=== PATIENT | female | born 1940 | race Caucasian/White ===

== ENCOUNTER 2019-11-04 22:03 | Inpatient (IN) | payer MEDICARE, OTHER ==
[2019-11-04] MEDS ORDERED: Acetaminophen 500 MG TAB ONE (22:42)
[2019-11-04] MEDS ORDERED: Diazepam 5 MG TAB ONE (22:42)
--- NOTE | 2019-11-04 23:00 | PDOC.HHP ---
Hospitalist HPI - History of Present Illness Chest pain History of Present Illness: PCP: Dr. King The patient is a pleasant 79-year-old female past medical history significant for hypertension, hyperlipidemia and Takotsubo syndrome. The patient presented to an outside hospital for 2 to 3 days of "heart burn". Today it grew worse and she had epigastric that led to her vomiting 4 times today and then her chest pain began. She describes the chest pain as an achy feeling that went into her left shoulder. She states that she did have relief when she received nitro. She denies shortness of breath, exacerbating symptoms, relieving factors at home, change in bladder patterns, contact with sick persons. She states she has been compliant with her medication. The only other time she has had chest pain was 10 years ago when she was diagnosed with Takotsubo syndrome. ED Course: VITAL SIGNS [facility] Nov 04, 2019 22:04 SINCERE Mohamud Kristin BP: 180/69, MAP: 106, Pulse: 63, Resp: 18, Temp: 98.4 (Oral), Pain: 5, O2 sat: 95 on (Room Air), Time: 11/04/2019 22:04. VITAL SIGNS [facility] Nov 04, 2019 22:36 SINCERE Mohamud Kristin BP: 138/78, MAP: 98, Pulse: 63, Resp: 16, O2 sat: 96 on (Room Air), Time: 11/04/2019 22:36. VITAL SIGNS [facility] Nov 04, 2019 23:30 SINCERE Mohamud Kristin BP: 117/62, MAP: 80, Pulse: 60, Resp: 16, Pain: 0, O2 sat: 96 on (Room Air), Time: 11/04/2019 23:30. VITAL SIGNS [place] Nov 05, 2019 00:27 SINCERE Mohamud Kristin BP: 141/67, Pulse: 59, Resp: 16, Temp: 98, Pain: 0, O2 sat: 95, Time: 11/05/2019 00:27. Patient was originally seen in the [place] ER, where she had an EKG completed chest x-ray and had medication administered. She received Zofran 4 mg sublingual, four 81 mg aspirin, nitro 0.4 mg sublingual, GI cocktail, Protonix 40 mg IV push, and Lopressor 5 mg IV push. She was then transferred to the [place] ER after her troponin was indeterminate at 0.195 and she remained hypertensive. Today in the [place] ER she had lab work, EKG, CT of the brain, and medication administered. She had diazepam 5 mg orally, Tylenol 1000 milligrams orally, and full dose Lovenox administered. Hospitalist ROS - Review of Systems Cardiovascular: reports: chest pain Gastrointestinal: reports: vomiting, other (Heartburn) All other systems reviewed; all pertinent +/- noted in HPI/Subj - Medication Medications: No known drug allergies Current medications: Lexapro Sat Nov 04, 2019 22:23 SINCERE Shah Victoria TABLET : Strength - 20 mg : ORAL Patient Dose: 10 mg Oral once a day. simvastatin [facility] Nov 04, 2019 22:23 SINCERE Shah Victoria TABLET : Strength - 20 mg : ORAL Patient Dose: 20 mg Oral once a day. metoprolol tartrate oral [facility] Nov 04, 2019 22:28 SINCERE Shah Victoria TABLET : Strength - 100 mg : ORAL Patient Dose: 1 tab(s) Oral 2 times a day. lisinopril [facility] Nov 04, 2019 22:29 SINCERE Shah Victoria TABLET : Strength - 5 mg : ORAL Patient Dose: unk mg Oral once a day Hospitalist History - Past Medical History Source: patient Cardiac: reports: HTN, Hyperlipidemia, Other (Takotsubo syndrome) Psych: reports: Anxiety - Past Surgical History Past Surgical History: reports: Hernia Repair - Family History Family History: reports: no pertinent history - Social History Smoking Status: Never smoker Alcohol: reports: None Drugs: reports: none Living Situation: With Family Activity level: independent ambulation - Exam General Appearance: NAD, awake alert Eye: PERRL Neck: supple, no lymphadenopathy Heart: RRR, no murmur, no gallops, no rubs, normal peripheral pulses Respiratory: CTAB, no wheezes, no rales, no ronchi, normal chest expansion Gastrointestinal: soft, non-tender, non-distended, normal bowel sounds Extremities: no edema Psychiatric: normal affect, normal behavior Hospitalist Results - Labs Lab results: Laboratory Tests 11/04/19 11/04/19 11/04/19 19:38 19:38 19:38 WBC 7.8 RBC 4.10 L Sodium 140 Potassium 4.0 Chloride 101 BUN 19 Creatinine 0.90 Estimated GFR (MDRD) 60 Glucose 123 H Lactic Acid 1.4 CK-MB (CK-2) Troponin I 11/04/19 11/04/19 19:38 22:47 WBC RBC Sodium Potassium Chloride BUN Creatinine Estimated GFR (MDRD) Glucose Lactic Acid CK-MB (CK-2) 2.7 6.2 Troponin I 0.195 H 1.155 H* - EKG Interpretation EKG: Initial ER at [place] showed normal sinus rhythm 66 bpm with no ectopic beats with complete right bundle branch block EKG in [place] showed normal sinus rhythm 61 bpm with no ectopic beats with a right bundle branch block - Radiology Interpretation CT scan - head Status: report reviewed by me Additional Comment: Impression: 1. No acute intracranial findings 2. Involutional changes and chronic ischemic white matter changes Hospitalist H&P A/P - Problem (1) NSTEMI (non-ST elevated myocardial infarction) Code(s): I21.4 - NON-ST ELEVATION (NSTEMI) MYOCARDIAL INFARCTION Status: Acute (2) Hypertension Code(s): I10 - ESSENTIAL (PRIMARY) HYPERTENSION Status: Chronic (3) Hyperlipidemia Code(s): E78.5 - HYPERLIPIDEMIA, UNSPECIFIED Status: Chronic (4) Vomiting Code(s): R11.10 - VOMITING, UNSPECIFIED Status: Acute - Plan Plan: NSTEMI Currently no active chest pain or shortness of breath Continue to trend troponins Monitor on telemetry Cardiology consult in a.m., n.p.o. until collar setter clears patient Scheduled nitro Full dose Lovenox twice daily Echo in a.m. Hypertension Vital signs every 4 hour, currently hemodynamically stable Can restart home medications Nausea and vomiting Currently resolved PRN antiemetics available Hyperlipidemia Can restart home medications VTE prophylaxis covered with full dose Lovenox and GI prophylaxis covered with Protonix CODE STATUS: DNR Surrogate decision maker is her , Curtis Patient discussed with Dr. Lopez
--- NOTE | 2019-11-04 23:27 | CT ---
CT BRAIN NONCONTRAST: DATE: 11/04/2019 HISTORY: 79-year-old female with headache FINDINGS: There is no evidence of acute intra-axial or extra-axial hemorrhage. There is no midline shift or any other mass effect. There is no extra-axial fluid collection. There is no evidence of obstructive hydrocephalus. Calvarium is intact. There is diffuse brain parenchymal volume loss. There are low att enuation areas in the white matter. These are nonspecific, but in a patient of this age, they are probably chronic ischemic white matter changes due to microvascular atherosclerosis. IMPRESSION: 1) No acute intracranial findings. 2) involutional changes and chronic ischemic white matter changes.
[2019-11-04 23:41] LABS: CKMB 6.2 ng/mL (0-6.6)
[2019-11-05] MEDS ORDERED: Enoxaparin Sodium 60 MG/0.6 ML SYRINGE ONE (00:27)
[2019-11-05 01:17] VITALS: BMI 21.2
[2019-11-05] MEDS ORDERED: Nitroglycerin 2% Ointment 1 INCH/1 GM Packet TOP SCH (02:30)
[2019-11-05] MEDS: Acetaminophen 325 MG TAB PO PRN ×3 (02:44→16:31)
[2019-11-05 02:53] LABS: Troponin I 1.722 ng/mL (< 0.028)
[2019-11-05 05:10] LABS: Cardiac Risk 2.1 (Less than 4.5)
[2019-11-05 05:17] LABS: Critical Call Chem Troponin I RESULT DECREASING; Troponin I 1.551 ng/mL (< 0.028)
[2019-11-05] MEDS ORDERED: Carvedilol 3.125 MG TAB PO SCH (07:30)
[2019-11-05] MEDS: Enoxaparin Sodium 60 MG/0.6 ML SYRINGE SC SCH ×4 (09:23→21:38)
[2019-11-05] MEDS: Aspirin 325 mg Enteric Coated Tablet PO SCH (09:27)
[2019-11-05] MEDS ORDERED: Communication Order-Pharmacy FS SCH (11:00)
[2019-11-05 12:24] LABS: SARS-CoV-2 MS2 Positive; SARS-CoV-2 N Gene Negative; SARS-CoV-2 S Gene Negative; SARS-CoV-2 by NAA Not Detected (NotDetected); SARS-CoV-2 orf1ab Negative
--- NOTE | 2019-11-05 12:25 | CON ---
DATE OF CONSULTATION: HISTORY OF PRESENT ILLNESS: The patient is a 79-year-old woman, who presents for evaluation of nausea, vomiting, and chest discomfort. The patient has a previous history of takotsubo's syndrome. She made a complete recovery from her cardiomyopathy. The patient was in her usual state of health when she started being nauseated and vomiting. She also felt dyspneic. The patient reported having midsternal chest discomfort. She came to the hospital yesterday with persistent discomfort. The patient denies having any present chest pain. The patient's cardiac risk factors include hypertension, dyslipidemia, and a family history of coronary artery disease. PAST MEDICAL HISTORY: 1. Hypertension. 2. Dyslipidemia. PAST SURGICAL HISTORY: Hernia surgery. SOCIAL HISTORY: Nonsmoker. MEDICATIONS: 1. Zocor 30 at bedtime. 2. Toprol 50 b.i.d. 3. Lisinopril 10 daily. 4. Lexapro 10 daily. ALLERGIES: NO KNOWN DRUG ALLERGIES. REVIEW OF SYSTEMS: Ten-point system otherwise unremarkable. No history of easy bruising or bright red blood per rectum. PHYSICAL EXAMINATION: GENERAL: This is a thin woman, in no acute distress. VITAL SIGNS: Blood pressure 141/67. NECK: Showed no jugular venous distention. LUNGS: Clear to auscultation. HEART: Regular rate and rhythm. Normal S1 and S2. No murmurs. ABDOMEN: Nondistended. EXTREMITIES: Show no edema. VASCULAR: Radial pulses 2+. LABORATORY DATA: Sodium was 140, potassium 4.0, chloride 101, bicarbonate 26, BUN 19, and creatinine 0.9. Troponin 1.5. White blood cell count 7.8, hemoglobin 12.6, hematocrit 40.9, and platelets are 238. EKG normal sinus rhythm with left axis deviation and right bundle-branch block. IMPRESSION: 1. Non-Q-wave myocardial infarction. 2. History of takotsubo syndrome. 3. Hypertension. 4. Dyslipidemia. This patient presents with a small non-Q-wave myocardial infarction. I discussed the option of medical therapy versus invasive evaluation. The patient first proceed with a cardiac catheterization. The risks involved in the procedure including LA, bleeding, stroke, cardiac arrhythmia, cardiac explained to the patient. The patient understands these risks and wished to proceed. Job ID: [id number] [facility]
--- NOTE | 2019-11-05 12:29 | PDOC.HOSPP ---
- Subjective Encounter Date: 11/05/19 Encounter Time: 11:00 Subjective: The patient has no chest pain currently. She had chest pressure earlier this morning and nausea for two days. Her nausea has improved. No palpitations, dizziness or lightheadedness She denies SOB - Objective Vital Signs & Weight: Vital Signs (12 hours) Temp Pulse Resp BP Pulse Ox 11/05/19 09:24 97.8 F 58 L 14 141/67 H 97 11/05/19 04:39 98.3 F 61 16 133/63 97 11/05/19 01:00 96 11/05/19 00:58 98.6 F 62 20 171/76 H 99 Weight Weight 120 lb 1.6 oz Hospitalist ROS - Review of Systems Constitutional: denies: fever, chills - Medication Medications: Active Medications Generic Name Dose Route Start Last Admin Trade Name Freq PRN Reason Stop Dose Admin Acetaminophen 650 mg 11/05/19 02:22 11/05/19 09:27 Acetaminophen 325 Mg Tab PO 650 mg Q6H PRN Administration Pain Aspirin 325 mg 11/05/19 09:00 11/05/19 09:27 Aspirin 325 Mg Enteric Coated Tablet PO 325 mg DAILY JANELLE Administration Enoxaparin Sodium 50 mg 11/05/19 09:00 11/05/19 10:57 Enoxaparin Sodium 60 Mg/0.6 Ml Syringe SC 11/05/19 22:00 50 mg 0900,2100 JANELLE Administration Pantoprazole Sodium 40 mg 11/05/19 09:00 11/05/19 09:26 Pantoprazole 40 Mg Tab PO 40 mg DAILY JANELLE Administration - Exam General Appearance: NAD, awake alert Eye: PERRL, anicteric sclera ENT: normocephalic atraumatic, no oropharyngeal lesions Neck: no JVD Heart: RRR, no murmur, no gallops, no rubs Respiratory: CTAB, no wheezes, no rales, no ronchi Gastrointestinal: soft, non-tender, non-distended, normal bowel sounds Extremities: no cyanosis, no clubbing, no edema Skin: normal turgor, no lesions, no rashes Neurological: cranial nerve grossly intact, normal sensation to touch, no focal deficits, no new deficit Musculoskeletal: normal tone, normal strength, no muscle wasting Hosp A/P - Plan This is a 79 year old female with past medical history of depression, hypertenesion, hyperlipidemia who presented with chest pain/nausea, admitted for NSTEMI NSTEMI - troponin peaked at 1.722 - continue aspirin, statin, nitro and lovenox. - cardiology has been consulted, plan for cardiac cath tomorrow Hypertension - continue beta-carolyn if not bradycardic Hyperlipidemia - continue statin Depression - continue celexa
[2019-11-05] MEDS: Nitroglycerin 2% Ointment 1 INCH/1 GM Packet TOP SCH ×2 (15:08→21:37)
[2019-11-06 04:03] LABS: Hemoglobin 11.4 g/dL (12.0-16.0); Platelet Count 216 thou/uL (130-400)
[2019-11-06] MEDS: Nitroglycerin 2% Ointment 1 INCH/1 GM Packet TOP SCH ×2 (05:17→13:30)
[2019-11-06] MEDS: Aspirin 325 mg Enteric Coated Tablet PO SCH (05:17)
[2019-11-06] MEDS: Acetaminophen 325 MG TAB PO PRN (07:48)
[2019-11-06] MEDS ORDERED: Iopamidol 370 76% 100 ML VIAL ONE (09:31)
[2019-11-06] MEDS ORDERED: Lidocaine 1% (PF) 30 ML VIAL ONE (10:26)
[2019-11-06] MEDS ORDERED: Sodium Chloride 0.9% 200 ML IV PRN (11:19)
[2019-11-06] MEDS ORDERED: Acetaminophen/Codeine 30-300mg Tablet PO PRN ×2 (11:19)
[2019-11-06] MEDS ORDERED: Nitroglycerin 0.4 MG TAB (25 Tab Bottle) SL PRN (11:19)
[2019-11-06 16:44] VITALS: BP 146/70; TEMP 97.7
[2019-11-06] MEDS ORDERED: Atorvastatin Calcium 40 MG TAB PO SCH (21:00)
--- NOTE | 2019-11-07 00:46 | DIS ---
DATE OF ADMISSION: 11/05/2019 DATE OF DISCHARGE: 11/06/2019 DISCHARGE DIAGNOSIS: Non-ST segment elevation myocardial infarction. CONSULTATIONS: Franklin Alanis MD, with Cardiology. PROCEDURES: Cardiac cath, 11/06/2019. BRIEF HISTORY OF PRESENT ILLNESS: This is a 79-year-old female with a past medical history of hypertension, hyperlipidemia, Takotsubo, presented to the emergency room with 2-3 days of heartburn. She reported that she had epigastric pain, followed by vomiting and then chest pain. Her chest pain radiated to her left shoulder. Due to persistent vomiting, she came to the emergency room. EKG showed no Q-waves. It showed a normal sinus rhythm with left axis deviation, right bundle branch block. Troponin was elevated at 1.155. The patient was given therapeutic Lovenox, aspirin, statin, admitted for further workup. HOSPITAL COURSE: Acute NSTEMI: The patient underwent cardiac cath on 11/05. She was found to have a 30% stenosis of her mid RCA. Her LAD, left circumflex, and LMCA were normal. She was advised to start aspirin 81 mg p.o. daily. Her Zocor was switched to atorvastatin [address] Alanis's recommendation. She was discharged with nitroglycerin. She will resume her lisinopril. She should follow up with Dr. Alanis in 1 month. The patient had no chest pain at the time of discharge. DISCHARGE PHYSICAL EXAMINATION: VITAL SIGNS: Temperature 97.7, heart rate 71, respiratory rate 17, O2 saturation 98% on room air, blood pressure 146/70. GENERAL: The patient is alert, oriented x3. CVS: Regular rate and rhythm with no murmurs, rubs, or gallops. LUNGS: Clear to auscultation bilaterally. ABDOMEN: Positive bowel sounds, soft, nontender, nondistended. EXTREMITIES: No edema. PERTINENT LABORATORY DATA: CBC, 11/03: White count 7.8, hemoglobin 11.4, hematocrit 34.0, and platelet count 216. BMP, 11/03: Normal. Serum creatinine, 11/05: 0.97. LFTs, 11/03: Normal. Troponin I: 0.195, which peaked at 1.722 and decreased to 1.551. CK-MB: peaked at 6.2. Lipid panel: Cholesterol 154, LDL 74, HDL 72. UA 11/03: Showed turbid urine, 0-3 white blood cells. COVID PCR, 11/04: Negative. IMAGING: CT brain, 11/03: No acute findings. DISCHARGE INSTRUCTIONS: The patient needs to take aspirin. She should stop her Zocor and switch to atorvastatin. She needs to follow up with Dr. Alanis in a month. Consider repeat CBC to evaluate resolution of anemia. DISCHARGE MEDICATIONS: 1. Aspirin 81 mg p.o. daily. 2. Atorvastatin 20 mg p.o. at bedtime. 3. Nitroglycerin 0.4 mg SL q.5 hours minutes p.r.n. 4. Lisinopril 10 mg p.o. daily. 5. Metoprolol succinate 50 mg p.o. b.i.d. 6. Celexa 10 mg p.o. daily. Job ID: [id number] [facility]
== END 2019-11-06 17:59 | disposition home or self-care (01) | DRG 282 ==
LOC: ERS 22:03 → 2NO 11-05
PROVIDERS: ADMIT Family Medicine; ATTEND Family Medicine
PROC: 4A023N7 Measurement of Cardiac Sampling and Pressure, Left Heart, Percutaneous Approach (ICD-10-PCS; principal; 2019-11-06)
PROC: B2151ZZ Fluoroscopy of Left Heart using Low Osmolar Contrast (ICD-10-PCS; 2019-11-06)
PROC: B2111ZZ Fluoroscopy of Multiple Coronary Arteries using Low Osmolar Contrast (ICD-10-PCS; 2019-11-06)
DX: I21.4 Non-ST elevation (NSTEMI) myocardial infarction (principal); Z66 Do not resuscitate; Z20.828 Contact with and (suspected) exposure to other viral communicable diseases; I10 Essential (primary) hypertension; E78.5 Hyperlipidemia, unspecified; F41.9 Anxiety disorder, unspecified; I25.10 Atherosclerotic heart disease of native coronary artery without angina pectoris; F32.9 Major depressive disorder, single episode, unspecified; I45.10 Unspecified right bundle-branch block; D64.9 Anemia, unspecified; Z79.899 Other long term (current) drug therapy
CPT/HCPCS: 36415; 70450; 80061; 82553; 82565; 84484; 85014; 85018; 85049; 87635; 93005; 93306; 93458; 94760; 96372; J1644; J1650; J2001; Q9967; U0003

== ENCOUNTER 2020-11-14 19:36 | Inpatient (IN) | payer MEDICARE ==
[2020-11-14 23:53] VITALS: BMI 20.1
[2020-11-15] MEDS ORDERED: Ondansetron PF 4 MG/2 ML Vial IVP PRN (01:41)
[2020-11-15] MEDS ORDERED: Acetaminophen 325 MG TAB PO PRN (01:41)
[2020-11-15] MEDS ORDERED: hydrALAZINE 20 MG/ML VIAL SLOW IVP PRN (01:43)
[2020-11-15 02:44] LABS: Hemoglobin 11.5 g/dL (12.0-16.0); Mean Corpuscular Hemoglobin 31.4 pg (27.0-31.0); Mean Corpuscular Volume 95.3 fL (78.0-98.0); Mean Platelet Volume 8.1 fL (7.4-10.4); Platelet Count 221 thou/uL (130-400); RBC Distribution Width 10.9 % (11.5-14.5); Red Blood Cell (RBC) Count 3.66 mill/uL (4.20-5.40); White Blood Cell (WBC) Count 6.1 thou/uL (4.8-10.8)
[2020-11-15 03:09] LABS: Anion Gap 13 mmol/L (10-20); BUN (Urea Nitrogen) 19 mg/dL (9.8-20.1); Calc. Creatinine Clearance 43 mL/min (70-130); Calcium 9.5 mg/dL (7.8-10.44); Carbon Dioxide 24 mmol/L (23-31); Chloride 105 mmol/L (98-107); Glucose 120 mg/dL (83-110); Magnesium 1.9 mg/dL (1.6-2.6); Potassium 3.7 mmol/L (3.5-5.1); Sodium 138 mmol/L (136-145)
[2020-11-15 03:35] LABS: Eosinophils 3 % (0-10); Lymphocytes 57 % (21-51); MDiff Complete? YES; Monocytes 3 % (0-10); Neutrophil 35 % (42-75)
[2020-11-15] MEDS: Aspirin 81 mg Enteric Coated Tablet PO SCH (08:49)
[2020-11-15] MEDS ORDERED: Lisinopril 10 MG TAB PO SCH (09:00)
[2020-11-15 12:59] LABS: Bacteria/HPF None Seen HPF (None Seen); Bilirubin Negative (Negative); Blood, Urine Negative (Negative); Clarity Clear (Clear); Glucose, Urine (Dipstick) Normal (Negative); Ketone, Urine 20 mg/dL (Negative); Leukocyte Negative Leu/uL (Negative); Nitrite Negative (Negative); Protein, Urine (Dipstick) Negative (Neg-Trace); RBC/HPF 0-3 HPF (0-3); Specific Gravity, Urine 1.012 (1.002-1.036); Squamous Epithelial None Seen HPF (0-3); Urobilinogen Normal mg/dL (Less than 2); WBC/HPF 0-3 HPF (0-3); pH, Urine 6.5 (5.0-9.0)
[2020-11-15 13:04] LABS: Urine Culture Reflex No No
[2020-11-15] MEDS ORDERED: Atorvastatin Calcium 20 MG TAB PO SCH (21:00)
[2020-11-15] MEDS: Lisinopril 10 MG TAB PO SCH (21:05)
[2020-11-16 05:32] LABS: Hemoglobin 11.8 g/dL (12.0-16.0); Mean Corpuscular HGB CONC 33.4 g/dL (32.0-36.0); Mean Corpuscular Hemoglobin 32.1 pg (27.0-31.0); Mean Corpuscular Volume 96.1 fL (78.0-98.0); Mean Platelet Volume 8.2 fL (7.4-10.4); Platelet Count 222 thou/uL (130-400); RBC Distribution Width 11.2 % (11.5-14.5); Red Blood Cell (RBC) Count 3.67 mill/uL (4.20-5.40); White Blood Cell (WBC) Count 5.6 thou/uL (4.8-10.8)
[2020-11-16 05:46] LABS: Anion Gap 11 mmol/L (10-20); BUN (Urea Nitrogen) 20 mg/dL (9.8-20.1); Calc. Creatinine Clearance 44 mL/min (70-130); Calcium 9.5 mg/dL (7.8-10.44); Carbon Dioxide 25 mmol/L (23-31); Chloride 107 mmol/L (98-107); Glucose 106 mg/dL (83-110); Magnesium 2.1 mg/dL (1.6-2.6); Potassium 4.2 mmol/L (3.5-5.1); Sodium 139 mmol/L (136-145)
[2020-11-16 08:39] LABS: Band 3 % (5-11); Eosinophils 1 % (0-10); Lymphocytes 56 % (21-51); MDiff Complete? YES; Monocytes 2 % (0-10); Neutrophil 38 % (42-75)
[2020-11-16] MEDS: Aspirin 81 mg Enteric Coated Tablet PO SCH (09:27)
[2020-11-16] MEDS: Lisinopril 10 MG TAB PO SCH (09:27)
[2020-11-16 09:37] VITALS: BP 119/59; TEMP 97.8
== END 2020-11-16 11:49 | disposition home or self-care (01) | DRG 309 ==
LOC: 2NO 19:36 → OBSVTOIN 11-15 13:40
PROVIDERS: ADMIT Internal Medicine; ATTEND Family Medicine
DX: R00.1 Bradycardia, unspecified (principal); I51.81 Takotsubo syndrome; I10 Essential (primary) hypertension; E78.5 Hyperlipidemia, unspecified; T50.995A Adverse effect of other drugs, medicaments and biological substances, initial encounter; I25.10 Atherosclerotic heart disease of native coronary artery without angina pectoris; I45.10 Unspecified right bundle-branch block; Z79.82 Long term (current) use of aspirin; Z79.899 Other long term (current) drug therapy; Z90.89 Acquired absence of other organs; Z98.890 Other specified postprocedural states; Z98.42 Cataract extraction status, left eye; Z98.41 Cataract extraction status, right eye; I25.2 Old myocardial infarction; Z86.79 Personal history of other diseases of the circulatory system
CPT/HCPCS: 36415; 80048; 81001; 83735; 84443; 85025; 87804; 93306

== ENCOUNTER 2021-09-22 16:19 | Inpatient (IN) | payer MEDICARE ==
[2021-09-22] MEDS ORDERED: Ondansetron PF 4 MG/2 ML Vial IVP PRN (17:57)
[2021-09-22] MEDS ORDERED: Acetaminophen 325 MG TAB PO PRN (17:57)
[2021-09-22] MEDS ORDERED: Morphine 2 MG/ML VIAL SLOW IVP PRN (17:57)
[2021-09-22] MEDS ORDERED: Nitroglycerin 0.4 MG TAB (25 Tab Bottle) SL PRN ×2 (17:57→18:19)
[2021-09-22 18:37] LABS: CKMB 13.3 ng/mL (0-6.6)
[2021-09-22 20:38] VITALS: BMI 20.5
[2021-09-22] MEDS ORDERED: Atorvastatin Calcium 40 MG TAB PO SCH (21:00)
[2021-09-22] MEDS: Lisinopril 10 MG TAB PO SCH (21:44)
[2021-09-22] MEDS: Dextrose 5 %-0.45 % NaCl 1,000 ML IV SCH (21:45)
[2021-09-22 21:46] LABS: Troponin I 1.676 ng/mL (< 0.028)
[2021-09-23 04:48] LABS: Cardiac Risk 2.5 (Less than 4.5)
[2021-09-23] MEDS: Dextrose 5 %-0.45 % NaCl 1,000 ML IV SCH (08:49)
[2021-09-23] MEDS: Aspirin 81 mg Enteric Coated Tablet PO SCH (08:51)
[2021-09-23] MEDS: Lisinopril 10 MG TAB PO SCH ×2 (08:51→21:12)
[2021-09-23] MEDS: Escitalopram Oxalate 10 mg Tablet PO SCH (08:51)
[2021-09-23] MEDS: Enoxaparin Sodium 40 MG/0.4 ML SYRINGE SC SCH (08:52)
[2021-09-23] MEDS ORDERED: Aspirin 325 mg Enteric Coated Tablet PO SCH (09:00)
[2021-09-23] MEDS ORDERED: Atorvastatin Calcium 40 MG TAB PO SCH (21:00)
[2021-09-24 07:49] VITALS: BP 164/72; TEMP 97.8
[2021-09-24] MEDS: Escitalopram Oxalate 10 mg Tablet PO SCH (08:16)
[2021-09-24] MEDS: Aspirin 81 mg Enteric Coated Tablet PO SCH (08:16)
[2021-09-24] MEDS: Enoxaparin Sodium 40 MG/0.4 ML SYRINGE SC SCH (08:17)
[2021-09-24] MEDS ORDERED: Lisinopril 20 MG TAB PO SCH (09:00)
== END 2021-09-24 10:45 | disposition home or self-care (01) | DRG 281 ==
LOC: ERS 16:19 → 2NO 17:57
PROVIDERS: ADMIT Internal Medicine; ATTEND Family Medicine
DX: I25.10 Atherosclerotic heart disease of native coronary artery without angina pectoris (principal); I21.A1 Myocardial infarction type 2; I51.81 Takotsubo syndrome; I10 Essential (primary) hypertension; E78.5 Hyperlipidemia, unspecified; F41.9 Anxiety disorder, unspecified; Z20.822 Contact with and (suspected) exposure to COVID-19; Z79.82 Long term (current) use of aspirin; Z98.890 Other specified postprocedural states; Z90.49 Acquired absence of other specified parts of digestive tract; Z79.899 Other long term (current) drug therapy; I25.2 Old myocardial infarction
CPT/HCPCS: 36415; 80061; 82553; 93005; 93306; 93798; J1650; J7042; U0003; U0005

== ENCOUNTER 2022-01-13 14:35 | Emergency (ER) | payer MEDICARE ==
[2022-01-13 15:22] LABS: #Basophils 0.1 thou/uL (0.0-0.2); #Lymphocytes 1.9 thou/uL (1.20-3.40); #Monocytes 0.3 thou/uL (0.11-0.59); %Basophils 0.9 % (0.0-1.0); %Eosinophils 0.3 % (0.0-10.0); %Lymphocytes 35.6 % (21.0-51.0); %Monocytes 6.1 % (0.0-10.0); %Neutrophils 57.1 % (42.0-75.0); Hemoglobin 12.6 g/dL (12.0-16.0); Mean Corpuscular HGB CONC 33.5 g/dL (32.0-36.0); Mean Corpuscular Hemoglobin 32.5 pg (27.0-31.0); Mean Platelet Volume 8.6 fL (7.4-10.4); Platelet Count 225 10x3/uL (130-400); Red Blood Cell (RBC) Count 3.89 mill/uL (4.20-5.40); White Blood Cell (WBC) Count 5.3 10x3/uL (4.8-10.8)
[2022-01-13 15:44] LABS: ALT (SGPT) 14 U/L (8-55); AST (SGOT) 22 U/L (5-34); Albumin 4.4 g/dL (3.4-4.8); Alkaline Phosphatase 90 U/L (40-110); Anion Gap 12 mmol/L (10-20); BUN (Urea Nitrogen) 16 mg/dL (9.8-20.1); Bilirubin, Total 0.7 mg/dL (0.2-1.2); Calc. Creatinine Clearance 0 mL/min (70-130); Calcium 9.6 mg/dL (7.8-10.44); Carbon Dioxide 27 mmol/L (23-31); Chloride 102 mmol/L (98-107); Estimated GFR 65; Globulin 2.6 g/dL (2.4-3.5); Glucose 126 mg/dL (83-110); Lipase 21 U/L (8-78); Sodium 137 mmol/L (136-145)
== END 2022-01-13 19:02 | disposition home or self-care (01) ==
LOC: ERS 14:35
DX: R11.2 Nausea with vomiting, unspecified (principal); I10 Essential (primary) hypertension; E78.5 Hyperlipidemia, unspecified
CPT/HCPCS: 36415; 71045; 80053; 83690; 84484; 85025; 93005; 94760

== ENCOUNTER 2023-11-21 16:07 | Inpatient (IN) | payer MEDICARE ==
[2023-11-21] MEDS ORDERED: Ondansetron PF 4 MG/2 ML Vial ONE (17:07)
[2023-11-21 17:20] LABS: #Basophils Less than 0.03 10x3/uL (0.0-0.2); #Eosinophils Less than 0.03 10x3/uL (0.0-0.7); %Basophils 0.1 % (0.0-1.0); %Lymphocytes 11.6 % (21.0-51.0); %Monocytes 8.7 % (0.0-10.0); %Neutrophils 79.1 % (42.0-75.0); Hemoglobin 16.7 g/dL (12.0-16.0); Mean Corpuscular HGB CONC 35.5 g/dL (32.0-36.0); Mean Corpuscular Hemoglobin 30.3 pg (27.0-31.0); Mean Corpuscular Volume 85.3 fL (78.0-98.0); Mean Platelet Volume 10.4 fL (7.4-10.4); Platelet Count 325 10x3/uL (130-400); RBC Distribution Width 11.7 % (11.5-14.5); Red Blood Cell (RBC) Count 5.51 mill/uL (4.20-5.40)
[2023-11-21 17:34] LABS: PTT 26.1 sec (22.9-36.1); Prothrombin Time 13.6 sec (12.0-14.7)
[2023-11-21 17:37] LABS: ALT (SGPT) 17 U/L (8-55); AST (SGOT) 28 U/L (5-34); Albumin 4.4 g/dL (3.4-4.8); Alkaline Phosphatase 118 U/L (40-110); Anion Gap 17 mmol/L (10-20); BUN (Urea Nitrogen) 43 mg/dL (9.8-20.1); Calc. Creatinine Clearance 0 mL/min (70-130); Calcium 10.5 mg/dL (7.8-10.44); Carbon Dioxide 28 mmol/L (23-31); Chloride 92 mmol/L (98-107); Estimated GFR 42; Globulin 3.6 g/dL (2.4-3.5); Glucose 173 mg/dL (83-110); Lipase 50 U/L (8-78); Magnesium 2.6 mg/dL (1.6-2.6); Potassium 3.2 mmol/L (3.5-5.1); Sodium 134 mmol/L (136-145)
[2023-11-21] MEDS ORDERED: Nitroglycerin 0.4 MG TAB 1 EACH ONE (18:12)
[2023-11-21] MEDS ORDERED: Aspirin Chewable 81 MG TAB ONE (18:12)
[2023-11-21] MEDS ORDERED: Potassium Bicarbonate/Cit Ac 20 MEQ TAB ONE (18:12)
[2023-11-21] MEDS ORDERED: Carvedilol 6.25 MG TAB PO SCH (18:45)
[2023-11-21 18:57] LABS: Bacteria/HPF None Seen HPF (None Seen); Bilirubin Negative (Negative); Blood, Urine 1+ (Negative); CAUTI Indications for Culture Alt mental st,lethar; Clarity Clear (Clear); Glucose, Urine (Dipstick) Normal (Negative); Ketone, Urine 20 mg/dL (Negative); Leukocyte Negative Leu/uL (Negative); Nitrite Negative (Negative); Protein, Urine (Dipstick) 300 mg/dL (Neg-Trace); Specific Gravity, Urine 1.014 (1.002-1.036); Squamous Epithelial None Seen HPF (0-3); Urobilinogen Normal mg/dL (Less than 2); pH, Urine 6.5 (5.0-9.0)
[2023-11-21 19:00] LABS: Urine Culture Reflex No No
[2023-11-21] MEDS ORDERED: Labetalol HCl 100 MG/20 ML VIAL ONE (19:01)
[2023-11-21] MEDS ORDERED: Acetaminophen 325 MG TAB PO PRN (19:12)
[2023-11-21] MEDS ORDERED: Ondansetron ODT 4 MG TAB PO PRN (19:12)
[2023-11-21] MEDS ORDERED: Electrolyte Replacement Protocol 1 EACH FS SCH (19:15)
[2023-11-21 20:34] LABS: Troponin I 0.074 ng/mL (< 0.028)
[2023-11-21 20:55] VITALS: BMI 21.2
[2023-11-21] MEDS: Pantoprazole 40 MG VIAL IVP SCH (21:26)
[2023-11-21] MEDS: NIFEdipine XL 30 MG ER.TAB PO SCH (21:27)
[2023-11-21] MEDS: Donepezil HCl 10 MG TAB PO SCH (22:10)
[2023-11-21] MEDS ORDERED: hydrALAZINE 20 MG/ML VIAL SLOW IVP PRN (23:31)
[2023-11-21 23:39] LABS: Troponin I 0.082 ng/mL (< 0.028)
[2023-11-22] MEDS: Sodium Chloride 0.9% 1,000 ML IV SCH (00:46)
[2023-11-22 05:28] LABS: #Basophils Less than 0.03 10x3/uL (0.0-0.2); #Eosinophils Less than 0.03 10x3/uL (0.0-0.7); %Basophils 0.1 % (0.0-1.0); %Eosinophils 0.1 % (0.0-10.0); %Lymphocytes 20.7 % (21.0-51.0); %Monocytes 9.8 % (0.0-10.0); Hemoglobin 14.6 g/dL (12.0-16.0); Mean Corpuscular HGB CONC 34.8 g/dL (32.0-36.0); Mean Corpuscular Hemoglobin 30.1 pg (27.0-31.0); Mean Corpuscular Volume 86.6 fL (78.0-98.0); Platelet Count 295 10x3/uL (130-400); RBC Distribution Width 11.7 % (11.5-14.5); Red Blood Cell (RBC) Count 4.85 mill/uL (4.20-5.40)
[2023-11-22 05:57] LABS: Anion Gap 12 mmol/L (10-20); BUN (Urea Nitrogen) 41 mg/dL (9.8-20.1); Calc. Creatinine Clearance 30 mL/min (70-130); Calcium 9.2 mg/dL (7.8-10.44); Carbon Dioxide 30 mmol/L (23-31); Chloride 96 mmol/L (98-107); Estimated GFR 48; Glucose 138 mg/dL (83-110); Potassium 2.3 mmol/L (3.5-5.1); Sodium 136 mmol/L (136-145)
[2023-11-22] MEDS: Potassium Chloride 20 MEQ TAB PO SCH (06:55)
[2023-11-22] MEDS ORDERED: Carvedilol 6.25 MG TAB PO SCH (08:00)
[2023-11-22] MEDS: NIFEdipine XL 30 MG ER.TAB PO SCH (09:35)
[2023-11-22] MEDS: Potassium Bicarbonate/Cit Ac 20 MEQ TAB PO SCH (09:37)
[2023-11-22] MEDS: Pantoprazole 40 MG VIAL IVP SCH (09:38)
[2023-11-22] MEDS: Calcium Gluc 4.6 MEQ/10 ML (100 MG/ML) SLOW IVP SCH (09:38)
[2023-11-22] MEDS: Potassium Chloride 20 MEQ in Premix 1 BAG IVPB SCH (09:39)
[2023-11-22 12:35] VITALS: BMI 21.2
[2023-11-22] MEDS: cloNIDine 0.1 MG TAB PO PRN (12:44)
[2023-11-22] MEDS: hydrALAZINE 25 MG TAB PO SCH ×2 (15:48→21:29)
[2023-11-22] MEDS: Donepezil HCl 10 MG TAB PO SCH (21:28)
[2023-11-22] MEDS: Atorvastatin Calcium 40 MG TAB PO SCH (21:28)
[2023-11-23 04:48] LABS: #Basophils Less than 0.03 10x3/uL (0.0-0.2); %Basophils 0.2 % (0.0-1.0); %Eosinophils 0.6 % (0.0-10.0); %Lymphocytes 32.2 % (21.0-51.0); %Monocytes 7.7 % (0.0-10.0); Anion Gap 8 mmol/L (10-20); BUN (Urea Nitrogen) 29 mg/dL (9.8-20.1); Calc. Creatinine Clearance 34 mL/min (70-130); Calcium 8.5 mg/dL (7.8-10.44); Carbon Dioxide 30 mmol/L (23-31); Chloride 100 mmol/L (98-107); Estimated GFR 55; Glucose 127 mg/dL (83-110); Mean Corpuscular HGB CONC 34.2 g/dL (32.0-36.0); Mean Corpuscular Hemoglobin 30.5 pg (27.0-31.0); Mean Corpuscular Volume 89.2 fL (78.0-98.0); Mean Platelet Volume 10.8 fL (7.4-10.4); Platelet Count 250 10x3/uL (130-400); Potassium 4.3 mmol/L (3.5-5.1); RBC Distribution Width 11.9 % (11.5-14.5); Red Blood Cell (RBC) Count 4.26 mill/uL (4.20-5.40); Sodium 134 mmol/L (136-145)
[2023-11-23] MEDS: Escitalopram Oxalate 10 mg Tablet PO SCH (08:27)
[2023-11-23] MEDS: Pantoprazole DR 40 MG TAB PO SCH (08:27)
[2023-11-23] MEDS: Aspirin 81 mg Enteric Coated Tablet PO SCH (08:27)
[2023-11-23] MEDS: Spironolactone 25 MG TAB PO SCH (08:28)
[2023-11-23] MEDS ORDERED: Iopamidol 370 76% 100 ML VIAL ONE (10:36)
[2023-11-23 13:33] VITALS: BP 118/56; TEMP 98
== END 2023-11-23 13:40 | disposition home or self-care (01) | DRG 305 ==
LOC: ERS 16:07 → 2NO 18:37
PROVIDERS: ADMIT Student in an Organized Health Care Education/Training Program; ATTEND Student in an Organized Health Care Education/Training Program
DX: I16.1 Hypertensive emergency (principal); N17.9 Acute kidney failure, unspecified; I5A Non-ischemic myocardial injury (non-traumatic); K52.9 Noninfective gastroenteritis and colitis, unspecified; E87.6 Hypokalemia; I10 Essential (primary) hypertension; Z90.89 Acquired absence of other organs; Z98.890 Other specified postprocedural states; Z79.899 Other long term (current) drug therapy; E78.5 Hyperlipidemia, unspecified; Z98.41 Cataract extraction status, right eye; Z98.42 Cataract extraction status, left eye; F41.9 Anxiety disorder, unspecified; F03.90 Unspecified dementia, unspecified severity, without behavioral disturbance, psychotic disturbance, mood disturbance, and anxiety
CPT/HCPCS: 36415; 71045; 74178; 76770; 80048; 80053; 81001; 82088; 83690; 83735; 83880; 84244; 84443; 84484; 85025; 85610; 85730; 93005; 93975; 96361; 96374; 96375; J0612; J2405; J2470; J3480; J7030; Q9967